=== PATIENT | female | born 1950 | race Caucasian/White ===

== ENCOUNTER → 2017-12-21 | Outpatient (CLI) | payer MEDICARE ==
[~2017-12-21] MED LIST: ACET325 PO; ALBU90OI6 INH; ALBU90OI61 INH; ASPI325 PO; ASPI81CH PO; ASPI81EC PO; BETA.05TO TOP; CALCA500CH PO; CIPR500 PO; CITA20 PO; CLOP75 PO; ERGO50000 PO; ESTEST.62T; FAMO20 PO; FISH1000 PO; HYDR1TAB94 PO; IBUP200 PO; IBUP400 PO; IRBHYD150 PO; LANS30EC PO; LEVFLO500 PO; MEGA RED PO; OMEP20ER PO; ONDA4ODT PO; PROC10 PO; PROM25 PO; PSEU120ER PO; SIMV10 PO; TRAM50 PO; Ultram50 MG PO; VITAMIN D 5000U PO; VITAMINS; Zofran4 MG PO
== END | disposition home or self-care (01) ==
LOC: LAB SHORT 17:16 → OLS 17:16
PROVIDERS: Nurse Practitioner Women's Health
DX: Z12.72 Encounter for screening for malignant neoplasm of vagina (principal); Z91.89 Other specified personal risk factors, not elsewhere classified
CPT/HCPCS: 87624; G0123

== ENCOUNTER → 2018-03-10 | Outpatient (CLI) | payer MEDICARE | LOC: LAB SHORT 18:20 → LAB 18:20 | DX: Z48.817 Encounter for surgical aftercare following surgery on the skin and subcutaneous tissue (principal); L90.0 Lichen sclerosus et atrophicus | CPT/HCPCS: 87070; 87205 ==

== ENCOUNTER 2018-08-30 21:26 | Inpatient (IN) | payer MEDICARE ==
[~2018-08-30] VITALS: Ht 170.2 cm; Wt 93.9 kg
[~2018-08-30 21:26] MED LIST changes: -ASPI81CH PO; +Aspirin EC81 MG PO; +IRBESARTAN-HCT1 EACH PO; -OMEP20ER PO
[2018-08-30 21:54] LABS: BASOPHILS ABSOLUTE AUTO 0.03 K/mm3 (0.00-0.23); BASOPHILS PERCENT AUTO 0 % (0-2); EOSINOPHILS ABSOLUTE AUTO 0.14 K/mm3 (0.00-0.68); EOSINOPHILS PERCENT AUTO 2 % (0-6); Hematocrit 43.6 % (33.0-51.0); IMMATURE GRAN ABSOLUTE AUTO 0.02 K/mm3 (0.00-0.10); IMMATURE GRAN PERCENT AUTO 0 % (0-1); LYMPHOCYTES ABSOLUTE AUTO 3.77 K/mm3 (0.84-5.20); LYMPHOCYTES PERCENT AUTO 45 % (21-46); MONOCYTES ABSOLUTE AUTO 0.63 K/mm3 (0.16-1.47); MONOCYTES PERCENT AUTO 8 % (4-13); Mean Corpuscular HGB 28.9 pg (26.0-34.0); Mean Corpuscular HGB Conc 32.1 g/dL (31.5-36.5); Mean Corpuscular Volume 90 fL (80-100); Mean Platelet Volume 9.5 fL (9.1-12.4); NEUTROPHILS ABSOLUTE AUTO 3.75 K/mm3 (1.96-9.15); NEUTROPHILS PERCENT AUTO 45 % (41-73); Platelet Count 276 K/mm3 (150-400); RDW Coefficient Variation 12.9 % (11.7-14.2); RDW Standard Deviation 42.8 fL (35.1-46.3); Red Blood Cell Count 4.85 M/mm3 (3.80-5.20); White Blood Cell Count 8.34 K/mm3 (4.00-11.30)
[2018-08-30 22:15] LABS: Alanine Aminotransfer (ALT/SGP 25 U/L (12-78); Albumin, Blood 3.5 g/dL (3.4-5.0); Albumin/Globulin Ratio 0.8 (0.8-1.8); Alk Phos 114 U/L (50-136); Anion Gap 10 mmol/L (6-16); Aspartate Aminotrans (AST/SGOT 21 U/L (12-37); Bilirubin, Total 0.2 mg/dL (0.1-1.0); Blood Urea Nitrogen 19 mg/dL (8-24); Bun/Creatinine Ratio 23.3 (12.0-20.0); CO2, Blood 27 mmol/L (21-32); Chloride, Blood 102 mmol/L (98-108); Creatinine, Blood 0.82 mg/dL (0.40-1.00); Globulin, Blood 4.2 g/dL (2.2-4.0); Glomerular Filtration Rate >60 (60-); Glucose, Blood 133 mg/dL (70-99); Potassium, Blood 3.5 mmol/L (3.5-5.5); Sodium, Blood 139 mmol/L (136-145); Total Protein, Blood 7.7 g/dL (6.4-8.2); Troponin I 0.015 ng/mL (0.000-0.040)
[2018-08-31 05:33] LABS: International Normalized Ratio 0.97; Prothrombin Time Results 10.3 Sec (9.7-11.5)
[2018-08-31] MEDS ORDERED: Citalopram HBr10 MG PO (14:08)
[2018-08-31] MEDS ORDERED: PRAV20 PO (14:10)
[2018-08-31] MEDS ORDERED: DICLOFENAC SOD100 G1 TOP (14:14)
[2018-08-31] MEDS ORDERED: OMEPRAZOLE MAGN20 MG PO (14:14)
[2018-09-01 05:13] LABS: BASOPHILS ABSOLUTE AUTO 0.02 K/mm3 (0.00-0.23); BASOPHILS PERCENT AUTO 0 % (0-2); EOSINOPHILS ABSOLUTE AUTO 0.09 K/mm3 (0.00-0.68); EOSINOPHILS PERCENT AUTO 1 % (0-6); Hematocrit 42.7 % (33.0-51.0); Hemoglobin 13.7 g/dL (11.5-16.0); IMMATURE GRAN ABSOLUTE AUTO 0.01 K/mm3 (0.00-0.10); IMMATURE GRAN PERCENT AUTO 0 % (0-1); LYMPHOCYTES ABSOLUTE AUTO 1.82 K/mm3 (0.84-5.20); LYMPHOCYTES PERCENT AUTO 27 % (21-46); MONOCYTES ABSOLUTE AUTO 0.59 K/mm3 (0.16-1.47); MONOCYTES PERCENT AUTO 9 % (4-13); Mean Corpuscular HGB 28.8 pg (26.0-34.0); Mean Corpuscular HGB Conc 32.1 g/dL (31.5-36.5); Mean Corpuscular Volume 90 fL (80-100); Mean Platelet Volume 9.7 fL (9.1-12.4); NEUTROPHILS ABSOLUTE AUTO 4.26 K/mm3 (1.96-9.15); NEUTROPHILS PERCENT AUTO 63 % (41-73); Platelet Count 258 K/mm3 (150-400); RDW Coefficient Variation 13.2 % (11.7-14.2); RDW Standard Deviation 43.6 fL (35.1-46.3); Red Blood Cell Count 4.75 M/mm3 (3.80-5.20); White Blood Cell Count 6.79 K/mm3 (4.00-11.30)
[2018-09-01 05:46] LABS: Anion Gap 8 mmol/L (6-16); Blood Urea Nitrogen 14 mg/dL (8-24); Bun/Creatinine Ratio 20.3 (12.0-20.0); CHOL/HDL RATIO 4.2; CO2, Blood 26 mmol/L (21-32); Calcium, Blood 8.6 mg/dL (8.5-10.1); Chloride, Blood 107 mmol/L (98-108); Cholesterol 179 mg/dL (50-200); Creatinine, Blood 0.69 mg/dL (0.40-1.00); Glomerular Filtration Rate >60 (60-); Glucose, Blood 92 mg/dL (70-99); HDL Cholesterol 43 mg/dL (>39); LDL/HDL RATIO 2.7; Low Density Lipoprotein Chol 116 mg/dL (0-110); Potassium, Blood 3.8 mmol/L (3.5-5.5); Sodium, Blood 141 mmol/L (136-145); Triglycerides 102 mg/dL (30-160); Very Low Density Lipoprot Chol 20 mg/dL (6-32)
--- NOTE | 2018-09-01 13:20 | NUR ---
Spiritual care visit conducted. Patient was lying in bed and alert. I entered room and introduced myself and patient and daughter, Connie, who was bedside, and they welcomed me. Patient openly shared about her medical event and the prognosis. Patient also talked about her strong family and home support system. I explored patient's home tradition, encouraged helpful attitudes and practices, provided a calming presence and prayer. Patient responded well to all interventions and showed signs of an elevated mood.
--- NOTE | 2018-09-01 13:37 | NUR ---
SHE IS RESTING CONFORTABLY. HER OCCLUSIVE R GROIN DRESSING HAS REMAINED INTACT. SPOT OF OLD BLOOD ON GAUZE UNDERNEATH THE TEGADERM. NO HEMATOMA. NO CP OR OTHER PAINS. NO SOB OR DIZZINESS. O2 HAS BEEN ON 2L ALL DAY BUT SHE TOOK A SHORT WALK ON RA WITH HER DAUGHTER. I JUST REMOVED HER O2. WILL CHECK RA BIOX SOON. DAUGHTER STILL AT BEDSIDE. WAS HERE TWICE TODAY TO CONFERENCE WITH THEM. LIFE [facility]ST ORDERING PROCESS HAS BEEN STARTED. VSS. SHE IS REQUESTING TO SHOWER. WILL SHOWER SOON.
--- NOTE | 2018-09-01 14:02 | NUR ---
O2 RESUMED AT 2L/MIN. HER RA SAT WAS 90%. 2L 94%.
--- NOTE | 2018-09-01 18:36 | NUR ---
SHE HAS HAD ONLY 1 COMPLAINT TODAY. HER CHRONIC INTERMITTENT NAUSEA WAS BOTHERING HER THIS MORNING. I GAVE HER ZOFRAN. NO CP. NO OTHER PAINS, SOB OR DIZZINESS. R GROIN DRESSING IN PLACE. IT IS DRY. NO HEMATOMA. SHE SHOWERED LATE THIS AFTERNOON. PUT IN AN EVENING DOSE OF LASIX. SHE HAS RECEIVED IT. HAT PUT IN TOILET FOR MEASURING. SHE HAD BRP BEFORE THAT. TEDS AND PAS ON BILATERALLY. LIFE VEST HAS BEEN ORDERED FOR DISCHARGE AND HUMAN [employer] OPERATIONS MANAGER CONSULT WAS ORDERED. [facility] WAS [facility] TO [facility] FOR [facility]SE [facility].
[2018-09-02 04:09] LABS: BASOPHILS ABSOLUTE AUTO 0.02 K/mm3 (0.00-0.23); BASOPHILS PERCENT AUTO 0 % (0-2); EOSINOPHILS ABSOLUTE AUTO 0.09 K/mm3 (0.00-0.68); EOSINOPHILS PERCENT AUTO 1 % (0-6); Hematocrit 41.2 % (33.0-51.0); Hemoglobin 13.2 g/dL (11.5-16.0); IMMATURE GRAN ABSOLUTE AUTO 0.01 K/mm3 (0.00-0.10); IMMATURE GRAN PERCENT AUTO 0 % (0-1); LYMPHOCYTES PERCENT AUTO 29 % (21-46); MONOCYTES ABSOLUTE AUTO 0.71 K/mm3 (0.16-1.47); MONOCYTES PERCENT AUTO 10 % (4-13); Mean Corpuscular HGB 29.1 pg (26.0-34.0); Mean Corpuscular Volume 91 fL (80-100); Mean Platelet Volume 9.7 fL (9.1-12.4); NEUTROPHILS ABSOLUTE AUTO 4.41 K/mm3 (1.96-9.15); NEUTROPHILS PERCENT AUTO 60 % (41-73); Platelet Count 240 K/mm3 (150-400); RDW Coefficient Variation 13.1 % (11.7-14.2); RDW Standard Deviation 43.4 fL (35.1-46.3); Red Blood Cell Count 4.54 M/mm3 (3.80-5.20); White Blood Cell Count 7.34 K/mm3 (4.00-11.30)
[2018-09-02 04:14] LABS: BASOPHILS ABSOLUTE AUTO 0.02 K/mm3 (0.00-0.23); BASOPHILS PERCENT AUTO 0 % (0-2); EOSINOPHILS ABSOLUTE AUTO 0.09 K/mm3 (0.00-0.68); EOSINOPHILS PERCENT AUTO 1 % (0-6); Hemoglobin 13.4 g/dL (11.5-16.0); IMMATURE GRAN ABSOLUTE AUTO 0.02 K/mm3 (0.00-0.10); IMMATURE GRAN PERCENT AUTO 0 % (0-1); LYMPHOCYTES PERCENT AUTO 28 % (21-46); MONOCYTES ABSOLUTE AUTO 0.77 K/mm3 (0.16-1.47); MONOCYTES PERCENT AUTO 10 % (4-13); Mean Corpuscular HGB 29.7 pg (26.0-34.0); Mean Corpuscular HGB Conc 32.7 g/dL (31.5-36.5); Mean Corpuscular Volume 91 fL (80-100); Mean Platelet Volume 9.7 fL (9.1-12.4); NEUTROPHILS ABSOLUTE AUTO 4.52 K/mm3 (1.96-9.15); NEUTROPHILS PERCENT AUTO 60 % (41-73); Platelet Count 236 K/mm3 (150-400); RDW Coefficient Variation 13.1 % (11.7-14.2); RDW Standard Deviation 43.8 fL (35.1-46.3); Red Blood Cell Count 4.51 M/mm3 (3.80-5.20); White Blood Cell Count 7.52 K/mm3 (4.00-11.30)
[2018-09-02 04:34] LABS: Anion Gap 9 mmol/L (6-16); Blood Urea Nitrogen 16 mg/dL (8-24); Bun/Creatinine Ratio 23.7 (12.0-20.0); CO2, Blood 27 mmol/L (21-32); Calcium, Blood 8.4 mg/dL (8.5-10.1); Chloride, Blood 105 mmol/L (98-108); Creatinine, Blood 0.67 mg/dL (0.40-1.00); Glomerular Filtration Rate >60 (60-); Glucose, Blood 97 mg/dL (70-99); Potassium, Blood 3.8 mmol/L (3.5-5.5); Sodium, Blood 141 mmol/L (136-145)
--- NOTE | 2018-09-02 05:25 | NUR ---
SHIFT SUMMARY NO CHANGES OVERNIGHT. PT HAS DENIED NEEDS. SHE HAS BEEN INDEPENDENT AND AMBULATORY IN THE ROOM. NO COMPLAINTS OF PAIN. PT MEDICATED WITH LASIKS SHORTLY BEFORE SHIFT CHANGE, AND HAS BEEN VOIDING ADEQUATELY. VITALS STABLE. PLAN IS FOR DC WITH LIFE VEST TODAY. WILL CONTINUE TO MONITOR AND REPORT TO ONCOMING RN.
--- NOTE | 2018-09-02 15:59 | NUR ---
Spiritual care visit conducted. Patient was lying in bed and alert with family and friends bedside. Patient caught me up on her prognosis and shared the kirsten she has had from the excellent care she has received form the PCU staff. I listened empahically to patient, provided companionship and quoted inspiring verses from Bible that are in line with the traditions of the patient. Patient responded well and expressed graitude for the visit.
[2018-09-02] MEDS ORDERED: HYDCHL12.5 PO (18:01)
[2018-09-02] MEDS ORDERED: ATOR40TA PO (18:02)
[2018-09-02] MEDS ORDERED: ACET325 PO (18:02)
[2018-09-02] MEDS ORDERED: CARV3.125 PO (18:21)
[2018-09-02] MEDS ORDERED: CLOP75 PO (18:22)
[2018-09-02] MEDS ORDERED: LOSA50 PO (18:23)
[2018-09-02] MEDS ORDERED: ONDA4ODT MM (18:24)
--- NOTE | 2018-09-02 20:47 | NUR ---
DISCHARGE SUMMARY PT A&OX4. CALM AND COOPERATIVE WITH CARE. PT RESTING IN BED THIS AM, UP IN CHAIR FOR MEALS. IND IN ROOM. SOB WITH EXERTION, PT ON 2L O2 VIA NC THIS AM, TITRATED TO RA, >92% ON T/O SHIFT. PT REPORTS NAUSEA THIS AFTERNOON, MEDICATED X1 WITH ZOFRAN. PT DENIES PAIN. DR GARCIA REMOVED FEMORAL ACCESS, BRUISING PRESENT. PT ON TELE, NSR TO ST 90'S -110'S. LIFE VEST FITTED THIS EVENING, ZOLL AT BEDSIDE, PT WEARING VEST UPON DISCHARGE. VSS. NO OTHER ACUTE CHANGES NOTED DURING SHIFT. PT AND FAMILY EDUCATED ON DISCHARGE INSTRUCTIONS, MEDICATIONS, FOLLOW UP APPOINTMENTS AND PLAVIX/ASPIRIN USE. PRESCRIPTIONS FAXED TO [facility], PER PT REQUEST. PT LEFT ROOM VIA WHEELCHAIR AT 1934. PT STABLE UPON DISCHARGE.
== END 2018-09-02 19:34 | disposition home or self-care (01) | DRG 282 ==
LOC: ER 21:26 → ERHOLD 21:27 → PCU 08-31 12:39 → ERHOLD 08-31 12:39 → PCU 08-31 13:09
PROVIDERS: Emergency Medicine; Family Medicine; Internal Medicine Cardiovascular Disease; ADMIT Hospitalist
PROC: B2061ZZ Plain Radiography of Right and Left Heart using Low Osmolar Contrast (ICD-10-PCS; principal; 2018-08-31)
PROC: 4A023N8 Measurement of Cardiac Sampling and Pressure, Bilateral, Percutaneous Approach (ICD-10-PCS; 2018-08-31)
PROC: 4A033BC Measurement of Arterial Pressure, Coronary, Percutaneous Approach (ICD-10-PCS; 2018-08-31)
PROC: B40F1ZZ Plain Radiography of Right Lower Extremity Arteries using Low Osmolar Contrast (ICD-10-PCS; 2018-08-31)
DX: I21.4 Non-ST elevation (NSTEMI) myocardial infarction (principal); I16.0 Hypertensive urgency; K21.9 Gastro-esophageal reflux disease without esophagitis; E78.5 Hyperlipidemia, unspecified; I73.9 Peripheral vascular disease, unspecified; I10 Essential (primary) hypertension; Z95.820 Peripheral vascular angioplasty status with implants and grafts; Z87.891 Personal history of nicotine dependence; I44.0 Atrioventricular block, first degree; I25.5 Ischemic cardiomyopathy; I25.118 Atherosclerotic heart disease of native coronary artery with other forms of angina pectoris
CPT/HCPCS: 36415; 71046; 80048; 80053; 80061; 84443; 84484; 85025; 85347; 85610; 85730; 93005; 93010; 93458; 96365-59; 96366; 96367; 96375-59; 99152; 99153; 99285-25; C1760; C1769; C8929; J1644; J1650; J1940; J2250; J2405; J3010; J7030; Q9957; Q9967

== ENCOUNTER → 2019-03-07 | Outpatient (CLI) | payer MEDICARE, OTHER ==
[~2019-03-07] MED LIST changes: +ATOR40TA PO; +CARV3.125 PO; +Citalopram HBr10 MG PO; +DICLOFENAC SOD100 G1 TOP; +HYDCHL12.5 PO; +LOSA50 PO; +OMEPRAZOLE MAGN20 MG PO; +ONDA4ODT MM; +PRAV20 PO
[2019-03-08 15:07] LABS: HPV 16 Negative (Negative); HPV 18 Negative (Negative); HPV OTHER HR TYPES Negative (Negative)
== END | disposition home or self-care (01) ==
LOC: LAB SHORT 11:29 → LAB 11:29
PROVIDERS: Nurse Practitioner Women's Health
DX: Z12.72 Encounter for screening for malignant neoplasm of vagina (principal); Z91.89 Other specified personal risk factors, not elsewhere classified
CPT/HCPCS: 87624; G0123

== ENCOUNTER 2019-09-20 21:13 | Emergency (ER) | payer MEDICARE, OTHER ==
[~2019-09-20] VITALS: Ht 167.6 cm; Wt 86.2 kg
[2019-09-20 21:36] LABS: BASOPHILS ABSOLUTE AUTO 0.02 K/mm3 (0.00-0.23); BASOPHILS PERCENT AUTO 0 % (0-2); EOSINOPHILS ABSOLUTE AUTO 0.16 K/mm3 (0.00-0.68); EOSINOPHILS PERCENT AUTO 3 % (0-6); Hematocrit 42.8 % (33.0-51.0); Hemoglobin 13.7 g/dL (11.5-16.0); IMMATURE GRAN ABSOLUTE AUTO 0.01 K/mm3 (0.00-0.10); IMMATURE GRAN PERCENT AUTO 0 % (0-1); LYMPHOCYTES ABSOLUTE AUTO 2.63 K/mm3 (0.84-5.20); LYMPHOCYTES PERCENT AUTO 46 % (21-46); MONOCYTES ABSOLUTE AUTO 0.63 K/mm3 (0.16-1.47); MONOCYTES PERCENT AUTO 11 % (4-13); Mean Corpuscular HGB 29.1 pg (26.0-34.0); Mean Corpuscular Volume 91 fL (80-100); Mean Platelet Volume 9.6 fL (9.1-12.4); NEUTROPHILS ABSOLUTE AUTO 2.27 K/mm3 (1.96-9.15); NEUTROPHILS PERCENT AUTO 40 % (41-73); Platelet Count 260 K/mm3 (150-400); RDW Coefficient Variation 13.3 % (11.7-14.2); RDW Standard Deviation 44.6 fL (35.1-46.3); Red Blood Cell Count 4.71 M/mm3 (3.80-5.20); White Blood Cell Count 5.72 K/mm3 (4.00-11.30)
[2019-09-20 21:56] LABS: Troponin I <0.015 ng/mL (0.000-0.040)
[2019-09-20 21:57] LABS: Alanine Aminotransfer (ALT/SGP 32 U/L (12-78); Albumin, Blood 3.5 g/dL (3.4-5.0); Alk Phos 109 U/L (50-136); Anion Gap 5 mmol/L (6-16); Aspartate Aminotrans (AST/SGOT 21 U/L (12-37); Bilirubin, Total 0.2 mg/dL (0.1-1.0); Blood Urea Nitrogen 14 mg/dL (8-24); Bun/Creatinine Ratio 16.3 (12.0-20.0); CO2, Blood 27 mmol/L (21-32); Calcium, Blood 8.7 mg/dL (8.5-10.1); Chloride, Blood 109 mmol/L (98-108); Creatinine, Blood 0.86 mg/dL (0.40-1.00); Globulin, Blood 3.6 g/dL (2.2-4.0); Glomerular Filtration Rate >60 (60-); Glucose, Blood 126 mg/dL (70-99); Sodium, Blood 141 mmol/L (136-145); Total Protein, Blood 7.1 g/dL (6.4-8.2)
== END 2019-09-21 00:56 | disposition home or self-care (01) ==
LOC: ER 21:13
PROVIDERS: Physician Assistant
DX: R07.9 Chest pain, unspecified (principal); I10 Essential (primary) hypertension; K21.9 Gastro-esophageal reflux disease without esophagitis; Z87.891 Personal history of nicotine dependence; Z88.0 Allergy status to penicillin; Z88.1 Allergy status to other antibiotic agents; Z88.5 Allergy status to narcotic agent; Z88.2 Allergy status to sulfonamides; Z88.8 Allergy status to other drugs, medicaments and biological substances; Z79.82 Long term (current) use of aspirin
CPT/HCPCS: 71046; 80053; 83880; 84484; 85025; 93005; 93010; 99285-25

== ENCOUNTER → 2020-08-09 | Outpatient (CLI) | payer MEDICARE ==
[~2020-08-09] MED LIST changes: +EZET10 PO; +LORA10ER PO; +SPIR25 PO; +TUMS500 MG PO; +Vitamin D2000 UNIT PO
[2020-08-09 12:12] LABS: Alanine Aminotransfer (ALT/SGP 28 U/L (12-78); Anion Gap 5 mmol/L (6-16); Aspartate Aminotrans (AST/SGOT 19 U/L (12-37); Blood Urea Nitrogen 10 mg/dL (8-24); Bun/Creatinine Ratio 12.8 (12.0-20.0); CO2, Blood 29 mmol/L (21-32); Calcium, Blood 8.7 mg/dL (8.5-10.1); Chloride, Blood 106 mmol/L (98-108); Creatinine, Blood 0.78 mg/dL (0.40-1.00); Glomerular Filtration Rate >60 (60-); Glucose, Blood 90 mg/dL (70-99); Potassium, Blood 4.2 mmol/L (3.5-5.5); Sodium, Blood 140 mmol/L (136-145)
== END | disposition home or self-care (01) ==
LOC: PLD 09:56 → LAB SHORT 09:56 → LAB 09:56 → LAB FUT 04-05 12:40
PROVIDERS: Internal Medicine Cardiovascular Disease
DX: I25.10 Atherosclerotic heart disease of native coronary artery without angina pectoris (principal); I10 Essential (primary) hypertension
CPT/HCPCS: 36415; 80048; 84450; 84460

== ENCOUNTER 2020-09-06 12:37 | Day surgery (SDC) | payer MEDICARE ==
[~2020-09-06] VITALS: Ht 160 cm; Wt 93.0 kg
[~2020-09-06 12:37] MED LIST changes: -EZET10 PO; -LORA10ER PO; -SPIR25 PO; -TUMS500 MG PO; -Vitamin D2000 UNIT PO
--- NOTE | 2020-09-06 13:12 | NUR ---
09/06/20 1312 Chrystal Irene 1 TRY RIGHT Hand blew 2 try right upper arm blew
== END 2020-09-06 14:30 | disposition home or self-care (01) ==
LOC: ORSCSDS 12:37
PROVIDERS: Internal Medicine Gastroenterology
PROC: 0DB68ZX Excision of Stomach, Via Natural or Artificial Opening Endoscopic, Diagnostic (ICD-10-PCS; principal; 2020-09-06 13:45)
DX: K21.9 Gastro-esophageal reflux disease without esophagitis (principal); K20.90 Esophagitis, unspecified without bleeding; K44.9 Diaphragmatic hernia without obstruction or gangrene; I25.2 Old myocardial infarction; I25.10 Atherosclerotic heart disease of native coronary artery without angina pectoris; E66.9 Obesity, unspecified; I10 Essential (primary) hypertension; Z68.35 Body mass index [BMI] 35.0-35.9, adult; Z87.891 Personal history of nicotine dependence; Z79.82 Long term (current) use of aspirin; Z79.01 Long term (current) use of anticoagulants; Z79.899 Other long term (current) drug therapy
CPT/HCPCS: 88305; 88342; J2704; J7120

== ENCOUNTER 2020-09-07 23:27 | Emergency (ER) | payer MEDICARE, OTHER ==
[~2020-09-07] VITALS: Ht 160 cm; Wt 93.0 kg
== END 2020-09-08 00:34 | disposition left against medical advice (07) ==
LOC: ER 23:27
DX: Z53.21 Procedure and treatment not carried out due to patient leaving prior to being seen by health care provider (principal)

== ENCOUNTER 2020-11-21 15:17 | Emergency (ER) | payer MEDICARE ==
[~2020-11-21] VITALS: Ht 167.6 cm; Wt 92.5 kg
[2020-11-21 15:46] LABS: BASOPHILS ABSOLUTE AUTO 0.02 K/mm3 (0.00-0.23); BASOPHILS PERCENT AUTO 0 % (0-2); EOSINOPHILS ABSOLUTE AUTO 0.18 K/mm3 (0.00-0.68); EOSINOPHILS PERCENT AUTO 4 % (0-6); Hematocrit 39.9 % (33.0-51.0); Hemoglobin 12.8 g/dL (11.5-16.0); IMMATURE GRAN ABSOLUTE AUTO 0.01 K/mm3 (0.00-0.10); IMMATURE GRAN PERCENT AUTO 0 % (0-1); LYMPHOCYTES ABSOLUTE AUTO 1.64 K/mm3 (0.84-5.20); LYMPHOCYTES PERCENT AUTO 32 % (21-46); MONOCYTES ABSOLUTE AUTO 0.55 K/mm3 (0.16-1.47); MONOCYTES PERCENT AUTO 11 % (4-13); Mean Corpuscular HGB 28.4 pg (26.0-34.0); Mean Corpuscular HGB Conc 32.1 g/dL (31.5-36.5); Mean Corpuscular Volume 89 fL (80-100); Mean Platelet Volume 9.6 fL (9.1-12.4); NEUTROPHILS ABSOLUTE AUTO 2.75 K/mm3 (1.96-9.15); NEUTROPHILS PERCENT AUTO 53 % (41-73); Platelet Count 414 K/mm3 (150-400); RDW Coefficient Variation 12.8 % (11.7-14.2); RDW Standard Deviation 41.6 fL (35.1-46.3); Red Blood Cell Count 4.51 M/mm3 (3.80-5.20); White Blood Cell Count 5.15 K/mm3 (4.00-11.30)
[2020-11-21 15:59] LABS: Alanine Aminotransfer (ALT/SGP 26 U/L (12-78); Albumin, Blood 2.9 g/dL (3.4-5.0); Albumin/Globulin Ratio 0.6 (0.8-1.8); Alk Phos 82 U/L (50-136); Anion Gap 5 mmol/L (6-16); Aspartate Aminotrans (AST/SGOT 22 U/L (12-37); Bilirubin, Total 0.4 mg/dL (0.1-1.0); Blood Urea Nitrogen 7 mg/dL (8-24); CO2, Blood 29 mmol/L (21-32); Calcium, Blood 9.2 mg/dL (8.5-10.1); Chloride, Blood 105 mmol/L (98-108); Creatinine, Blood 0.78 mg/dL (0.40-1.00); Globulin, Blood 4.5 g/dL (2.2-4.0); Glomerular Filtration Rate >60 (60-); Glucose, Blood 91 mg/dL (70-99); Sodium, Blood 139 mmol/L (136-145); Total Protein, Blood 7.4 g/dL (6.4-8.2); Troponin I <0.015 ng/mL (0.000-0.040)
[2020-11-21] MEDS ORDERED: Vitamin D2000 UNIT PO (18:09)
[2020-11-21] MEDS ORDERED: SPIR25 PO (18:09)
[2020-11-21] MEDS ORDERED: LORA10ER PO (18:10)
[2020-11-21] MEDS ORDERED: TUMS500 MG PO (18:10)
[2020-11-21] MEDS ORDERED: EZET10 PO (18:11)
== END 2020-11-21 21:22 | disposition home or self-care (01) ==
LOC: ER 15:17
PROVIDERS: Physician Assistant
DX: R07.9 Chest pain, unspecified (principal); I10 Essential (primary) hypertension; I25.2 Old myocardial infarction; Z86.16 Personal history of COVID-19; Z88.5 Allergy status to narcotic agent; Z88.2 Allergy status to sulfonamides; Z88.0 Allergy status to penicillin; Z88.8 Allergy status to other drugs, medicaments and biological substances; Z79.899 Other long term (current) drug therapy
CPT/HCPCS: 36415; 71046; 71260; 80053; 84484; 85025; 93005; 93010; 99285-25; Q9967

== ENCOUNTER 2021-11-19 13:59 | Emergency (ER) | payer MEDICARE ==
[~2021-11-19] VITALS: Ht 167.6 cm; Wt 93.0 kg
[~2021-11-19 13:59] MED LIST changes: +EZET10 PO; +LORA10ER PO; +SPIR25 PO; +TUMS500 MG PO; +Vitamin D2000 UNIT PO
== END 2021-11-19 15:13 | disposition home or self-care (01) ==
LOC: ER 13:59
DX: T78.3XXA Angioneurotic edema, initial encounter (principal); U07.1 COVID-19; I10 Essential (primary) hypertension; Z88.0 Allergy status to penicillin; Z88.5 Allergy status to narcotic agent; Z88.2 Allergy status to sulfonamides; Z88.1 Allergy status to other antibiotic agents; Z88.8 Allergy status to other drugs, medicaments and biological substances; Z79.899 Other long term (current) drug therapy; Z87.891 Personal history of nicotine dependence
CPT/HCPCS: 99285; J1100

== ENCOUNTER → 2021-11-20 | Outpatient (CLI) | payer MEDICARE | END | disposition home or self-care (01) | LOC: LAB 18:06 → LAB SHORT 18:06 | DX: R31.9 Hematuria, unspecified (principal) | CPT/HCPCS: 87086 ==